=== PATIENT | female | born 1955 | race Caucasian/White ===

== ENCOUNTER 2017-12-11 14:23 | Outpatient (CLI) | payer BC ==
--- NOTE | 2017-12-11 18:40 | MMO ---
BILATERAL SCREENING MAMMOGRAM: 12/11/17 COMPARISON: 09/05/16, 09/01/14, 11/24/12 exams. HISTORY: Annual screening study. The films are reviewed with the assistance of computer aided detection. The breasts are predominantly fatty replaced with benign calcifications within both breasts. There is no dominant mass, suspicious calcification or other signs of malignancy. IMPRESSION: BIRADS 2: Benign Finding(s) Routine annual screening mammography (for women over age 40). POS: [facility]
== END 2017-12-11 14:24 | disposition home or self-care (01) ==
LOC: SCSMAMMO 14:23
PROVIDERS: ATTEND Family Medicine
DX: Z12.31 Encounter for screening mammogram for malignant neoplasm of breast (principal)
CPT/HCPCS: 77067

== ENCOUNTER 2019-01-26 14:09 | Outpatient (CLI) | payer BC ==
--- NOTE | 2019-01-26 15:15 | MMO ---
Bilateral MAMMO Bilat Screen [facility]. CLINICAL HISTORY: Patient is 63 years old and is seen for screening. The patient has the following family history of breast cancer: sister, at age 59; aunt and cousin female. VIEWS: The views performed were: bilateral craniocaudal with tomosynthesis and bilateral mediolateral oblique with tomosynthesis. This study has been interpreted with the assistance of computer-aided detection. MAMMOGRAM FINDINGS: There are scattered fibroglandular densities. There are stable benign appearing calcifications seen in both breasts. There are no suspicious masses, suspicious calcifications, or new areas of architectural distortion. IMPRESSION: THERE IS NO MAMMOGRAPHIC EVIDENCE OF MALIGNANCY. A ROUTINE FOLLOW-UP MAMMOGRAM IN 1 YEAR IS RECOMMENDED. THE RESULTS OF THIS EXAM WERE SENT TO THE PATIENT. ACR BI-RADS Category 2 - Benign finding MAMMOGRAPHY NOTE: 1. A negative mammogram report should not delay a biopsy if a dominant of clinically suspicious mass is present. 2. Approximately 10% to 15% of breast cancers are not detected by mammography. 3. Adenosis and dense breasts may obscure an underlying neoplasm. Reported by: BECKY AVELAR MD Electonically Signed: [id number]
== END 2019-01-26 14:10 | disposition home or self-care (01) ==
LOC: BICMAMMO 14:09
PROVIDERS: ATTEND Family Medicine
DX: Z12.31 Encounter for screening mammogram for malignant neoplasm of breast (principal); Z80.3 Family history of malignant neoplasm of breast
CPT/HCPCS: 77063; 77067

== ENCOUNTER 2021-02-20 13:37 | Outpatient (CLI) | payer MEDICARE, BC | END 2021-02-20 13:38 | disposition home or self-care (01) | LOC: BICMRI 13:37 | PROVIDERS: ATTEND Family Medicine | DX: Z15.01 Genetic susceptibility to malignant neoplasm of breast (principal) | CPT/HCPCS: 82565; C8908; A9577 ==